=== PATIENT | female | born 1990 | race Caucasian/White ===

== ENCOUNTER 2024-01-16 17:58 | Emergency (ER) | payer MEDICAID ==
[~2024-01-16] VITALS: Ht 162.6 cm; Wt 81.8 kg
[2024-01-16 18:02] VITALS: BP 173/100; PULSE 110; RESP 18; O2SAT 99
[2024-01-16] MEDS: ondansetron 4mg rapidly disintigrating tab PO ONE (18:54)
[2024-01-16 18:58] VITALS: TEMP 97.5
== END 2024-01-16 18:55 | disposition left against medical advice (07) ==
LOC: ER 17:59
DX: R11.2 Nausea with vomiting, unspecified (principal)
CPT/HCPCS: 99283